=== PATIENT | female | born 1945 | race Caucasian/White ===

== ENCOUNTER 2018-02-28 09:39 | Outpatient (CLI) | payer MEDICARE | END 2018-02-28 09:40 | disposition home or self-care (01) | LOC: BICMAMMO 09:39 | PROVIDERS: ATTEND Specialist | DX: Z12.31 Encounter for screening mammogram for malignant neoplasm of breast (principal) | CPT/HCPCS: 77063; 77067 ==

== ENCOUNTER 2018-03-21 09:38 | Outpatient (CLI) | payer MEDICARE ==
--- NOTE | 2018-03-23 13:28 | RAD ---
MODIFIED BARIUM SWALLOW WITH SPEECH THERAPIST: History: Other dysphagia, esophageal reflux disease. FINDINGS: A modified barium swallow was performed by the speech therapist. Video was performed. Mild shallow pe netration was seen with thin liquids during the examination. No aspiration was seen during the examin ation. No other penetration was seen. IMPRESSION: Please refer to the speech therapist report for detailed findings and recommendations. POS: [facility]
== END 2018-03-21 09:39 | disposition home or self-care (01) ==
PROVIDERS: ATTEND Internal Medicine
DX: R13.19 Other dysphagia (principal); K21.9 Gastro-esophageal reflux disease without esophagitis
CPT/HCPCS: 74230; G8996-GN-CI; G8997-GN-CH; G8998-GN-CI

== ENCOUNTER 2018-04-05 11:19 | Day surgery (SDC) | payer MEDICARE ==
--- NOTE | 2018-04-05 15:29 | OP ---
DATE OF PROCEDURE: 04/05/2018 PROCEDURE: Esophagogastroduodenoscopy with biopsy. INDICATION FOR PROCEDURE: Gastroesophageal reflux disease, epigastric abdominal pain. DESCRIPTION OF PROCEDURE: After the risks and benefits of the procedure were explained to the patien t including risk of bleeding, infection, perforation, reactions to anesthesia, aspiration and/or pain , informed consent was obtained. The patient was then taken to the endoscopy suite where deep sedati on was administered via propofol and anesthesia support. Once adequate sedation was achieved, the st andard gastroscope was introduced into the mouth with intubation of the esophagus, stomach and the pr oximal small intestine with the findings listed below. The patient tolerated the procedure well with no immediate perioperative complications. FINDINGS: Esophagus: Normal-appearing mucosa was seen in the proximal, mid and distal esophagus. There was no evidence of erosions, ulcerations, mass lesions, active/recent bleeding or strictures or stenoses. 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 At the gastri c anastomosis, there were 2 ulcerations with adherent clot overlying them. Using biopsy forceps, bio psies were taken around these ulcerations and placed in specimen jar for evaluation. Upon attempting to remove one of the clots, a surgical staple was also removed at the same time. Otherwise, normal mucosa was seen in the gastric cardia, fundus, body until the anastomosis itself, antrum and incisura . On gastric retroflexion, there was a mild swirl pattern to the gastric mucosa surrounding the endo scope, but was indicative of a relaxed Param fundoplication. Duodenum: Normal-appearing mucosa was seen in both the duodenal bulb and second portion of the duode num. There was no evidence of erosions, ulcerations, mass lesions or active/recent bleeding. IMPRESSION: 1. Surgical change associated with partial gastrectomy and gastric anastomosis with suture granuloma /ulceration and adherent clot at the site. 2. Relaxed Param fundoplication. 3. No etiology for dysphagia was seen during this examination. RECOMMENDATIONS: 1. We will follow up on the biopsy results with repeat procedure dictated by the pathology results. 2. We would continue pantoprazole 40 mg daily. 3. We would avoid any NSAIDs as it could potentially cause gastric ulceration, especially at the sit e of the gastric anastomosis. 4. Continue standard acid reflux precautions. 5. Follow up in the GI clinic within 3-4 weeks for reevaluation of acid reflux.
[2018-04-05] MEDS ORDERED: Lidocaine 1% PF 5 ML VIAL ONE (16:19)
[2018-04-05] MEDS ORDERED: PROPOFOL 200 MG/20 ML VIAL ONE (16:19)
== END 2018-04-05 14:50 | disposition home or self-care (01) ==
LOC: SDC 11:19
PROVIDERS: ATTEND Internal Medicine
PROC: 0DB68ZX Excision of Stomach, Via Natural or Artificial Opening Endoscopic, Diagnostic (ICD-10-PCS; principal; 2018-04-05)
DX: K29.60 Other gastritis without bleeding (principal); K25.9 Gastric ulcer, unspecified as acute or chronic, without hemorrhage or perforation; K21.9 Gastro-esophageal reflux disease without esophagitis; M19.90 Unspecified osteoarthritis, unspecified site; E07.9 Disorder of thyroid, unspecified; G47.30 Sleep apnea, unspecified; Z79.82 Long term (current) use of aspirin; Z79.899 Other long term (current) drug therapy; Z90.3 Acquired absence of stomach [part of]; Z98.890 Other specified postprocedural states
CPT/HCPCS: 88305; 88312; J2001; J2704

== ENCOUNTER 2018-04-08 09:58 | Outpatient (CLI) | payer MEDICARE ==
--- NOTE | 2018-04-08 11:58 | RAD ---
TWO VIEWS CHEST: HISTORY: Dyspnea. FINDINGS: PA and lateral views of the chest were obtained on 04/08/2018. Comparison is made to the previous ex am from 03/01/2014. Two views chest demonstrate again a granuloma in the right lung base. Surgical clips seen in the rig ht upper quadrant of the abdomen. Pulmonary vascular congestion is seen. Calcification of the aorta is seen. IMPRESSION: Cardiomegaly and pulmonary vascular congestion. No acute intrathoracic abnormality seen. POS: [facility]
== END 2018-04-08 09:59 | disposition home or self-care (01) ==
LOC: BICRAD 09:58
PROVIDERS: ATTEND Specialist
DX: R06.00 Dyspnea, unspecified (principal); I51.7 Cardiomegaly; R09.89 Other specified symptoms and signs involving the circulatory and respiratory systems
CPT/HCPCS: 71046

== ENCOUNTER 2018-07-27 11:59 | Outpatient (CLI) | payer MEDICARE ==
--- NOTE | 2018-07-27 13:34 | RAD ---
PA AND LATERAL CHEST: HISTORY: Dyspnea. COMPARISON: 04/08/2018 FINDINGS: Calcified granuloma at the right lung base is again seen. The heart size is stable. The aorta is to rtuous. The lungs are well expanded without focal areas of consolidation, pneumothoraces, staci pulm onary edema, or pleural effusions. There are degenerative changes in the spine. IMPRESSION: No acute process. POS: [facility]
== END 2018-07-27 12:00 | disposition home or self-care (01) ==
LOC: RAD 11:59
PROVIDERS: ATTEND Internal Medicine
DX: R06.00 Dyspnea, unspecified (principal)
CPT/HCPCS: 71046

== ENCOUNTER 2018-10-05 20:30 | Outpatient (CLI) | payer MEDICARE | END 2018-10-05 20:31 | disposition home or self-care (01) | LOC: SLEEPLAB 20:30 | PROVIDERS: ATTEND Internal Medicine | DX: G47.33 Obstructive sleep apnea (adult) (pediatric) (principal); R53.83 Other fatigue; R09.89 Other specified symptoms and signs involving the circulatory and respiratory systems; R51 Headache; K21.9 Gastro-esophageal reflux disease without esophagitis; G47.00 Insomnia, unspecified; G47.10 Hypersomnia, unspecified; R06.83 Snoring; I10 Essential (primary) hypertension; E66.9 Obesity, unspecified; Z68.42 Body mass index [BMI] 45.0-49.9, adult | CPT/HCPCS: 95811 ==

== ENCOUNTER 2018-12-21 11:56 | Outpatient (CLI) | payer MEDICARE ==
--- NOTE | 2018-12-23 10:30 | PFT ---
PATIENT HISTORY: HEIGHT: 71 WEIGHT: 260 SMOKER: NO HOW LONG: NEVER PACKS PER DAY PRODUCTIVE COUGH: LUNG DISEASE: PHYSICIAN INTERPRETATION FINAL REPORT: There is moderate reduction in Expiratory Flows and Vital Capacity with minimum improvement in flow after Bronchodilator Therapy. RV decreased, RV/TLC normal; Total Lung Capacity decreased . Airway resistance was increased. Gas Transfer is decreased. IMPRESSION: Restrictive pulmonary impairment. Reduced diffusion capacity Core Inserter: CECILE Director Career Services: CECILE MUNROE
== END 2018-12-21 11:57 | disposition home or self-care (01) ==
LOC: CP 11:56
PROVIDERS: ATTEND Internal Medicine
DX: R06.00 Dyspnea, unspecified (principal); G47.33 Obstructive sleep apnea (adult) (pediatric)
CPT/HCPCS: 94060; 94727; 94729

== ENCOUNTER 2019-10-30 13:59 | Outpatient (CLI) | payer MEDICARE ==
--- NOTE | 2019-10-30 16:10 | MMO ---
Bilateral MAMMO Bilat Screen [facility]. CLINICAL HISTORY: Patient is 74 years old and is seen for screening. The patient has no family history of breast cancer. The patient has no personal history of cancer. VIEWS: The views performed were: bilateral craniocaudal with tomosynthesis; bilateral mediolateral oblique; and bilateral mediolateral oblique with tomosynthesis. FILMS COMPARED: The present examination has been compared to prior imaging studies performed at [facility] on 02/25/2017 and 02/28/2018, at [facility] on 07/09/2009, and at [facility] on 10/19/2014. This study has been interpreted with the assistance of computer-aided detection. MAMMOGRAM FINDINGS: There are scattered fibroglandular densities. There are stable calcifications seen in both breasts. There are no suspicious masses, suspicious calcifications, or new areas of architectural distortion. IMPRESSION: THERE IS NO MAMMOGRAPHIC EVIDENCE OF MALIGNANCY. A ROUTINE FOLLOW-UP MAMMOGRAM IN 1 YEAR IS RECOMMENDED. THE RESULTS OF THIS EXAM WERE SENT TO THE PATIENT. ACR BI-RADS Category 2 - Benign finding MAMMOGRAPHY NOTE: 1. A negative mammogram report should not delay a biopsy if a dominant of clinically suspicious mass is present. 2. Approximately 10% to 15% of breast cancers are not detected by mammography. 3. Adenosis and dense breasts may obscure an underlying neoplasm. Reported by: MELE BARBER MD Electonically Signed: [id number]
== END 2019-10-30 14:00 | disposition home or self-care (01) ==
LOC: BICMAMMO 13:59
PROVIDERS: ATTEND Internal Medicine
DX: Z12.31 Encounter for screening mammogram for malignant neoplasm of breast (principal)
CPT/HCPCS: 77063; 77067

== ENCOUNTER 2020-12-26 13:34 | Outpatient (CLI) | payer MEDICARE | END 2020-12-26 13:35 | disposition home or self-care (01) | LOC: BICMAMMO 13:34 | DX: Z12.31 Encounter for screening mammogram for malignant neoplasm of breast (principal) | CPT/HCPCS: 77063; 77067 ==

== ENCOUNTER 2021-12-29 09:53 | Outpatient (CLI) | payer MEDICARE | END 2021-12-29 09:54 | disposition home or self-care (01) | LOC: BICMAMMO 09:53 | PROVIDERS: ATTEND Internal Medicine | DX: Z12.31 Encounter for screening mammogram for malignant neoplasm of breast (principal) | CPT/HCPCS: 77063; 77067 ==

== ENCOUNTER 2022-01-08 09:04 | Outpatient (CLI) | payer MEDICARE, OTHER | END 2022-01-08 09:05 | disposition home or self-care (01) | LOC: BICMAMMO 09:04 | PROVIDERS: ATTEND Internal Medicine | DX: N64.89 Other specified disorders of breast (principal) | CPT/HCPCS: 77065; G0279 ==

== ENCOUNTER 2023-01-28 13:45 | Outpatient (CLI) | payer MEDICARE | END 2023-01-28 13:46 | disposition home or self-care (01) | LOC: BICMAMMO 13:45 | PROVIDERS: ATTEND Internal Medicine | DX: Z12.31 Encounter for screening mammogram for malignant neoplasm of breast (principal) | CPT/HCPCS: 77063; 77067 ==